=== PATIENT | female | born 1990 ===

== ENCOUNTER 2017-04-28 09:08 | Emergency (ER) | payer MEDICAID ==
[2017-04-28 09:19] VITALS: BMI 33.6
[2017-04-28 10:03] VITALS: TEMP 98.7
--- NOTE | 2017-04-28 10:11 | ED PDOC ---
Arrival/HPI - General Historian: Patient - General Chief Complaint: Chest Pain Time Seen by Provider: 04/28/17 09:20 - History of Present Illness Narrative History of Present Illness (Text): 04/28/17 10:05 A 27 year old female, whose past medical history includes anxiety that has untreated, whom is brought in by and presents to the emergency department complaining of chest pain, shortness of breath, and dizziness. Patient reports experiencing symptoms while on her way to work. Mentions currently in new high stress job that is anxiety invoking. Notes also experiencing diarrhea this morning. Patient denies any nausea, vomiting, LOC, or any other complaints. Also, patient mentions recently finishing a series of antibiotics for strep throat. PMD: Dr. Eliz Hicks ([place]) Past Medical History - Provider Review Nursing Documentation Reviewed: Yes - Psychiatric Hx Substance Use: No Family/Social History - Physician Review Nursing Documentation Reviewed: Yes Family/Social History: No Known Family HX Smoking Status: Never Smoked Hx Alcohol Use: No Hx Substance Use: No Allergies/Home Meds Allergies/Adverse Reactions: Allergies lecithin, soy Adverse Reaction (Severe, Verified 04/28/17 10:15) ANAPHYLAXIS Review of Systems - Physician Review All systems were reviewed & negative as marked: Yes - Review of Systems Constitutional: Normal Eyes: Normal ENT: Normal Respiratory: SOB Cardiovascular: Chest Pain Gastrointestinal: Diarrhea (this morning). absent: Nausea, Vomiting Genitourinary Female: Normal Musculoskeletal: Normal Skin: Normal Neurological: Dizziness Endocrine: Normal Hemo/Lymphatic: Normal Psychiatric: Normal Physical Exam Vital Signs Reviewed: Yes Temperature: Afebrile Blood Pressure: Normal Pulse: Regular Respiratory Rate: Normal Appearance: Positive for: Well-Appearing Pain Distress: None Mental Status: Positive for: Alert and Oriented X 3 - Systems Exam Head: Present: Atraumatic, Normocephalic Pupils: Present: PERRL Extroacular Muscles: Present: EOMI Conjunctiva: Present: Normal Mouth: Present: Moist Mucous Membranes Neck: Present: Normal Range of Motion Respiratory/Chest: Present: Clear to Auscultation, Good Air Exchange. No: Respiratory Distress, Accessory Muscle Use Cardiovascular: Present: Regular Rate and Rhythm, Normal S1, S2. No: Murmurs Abdomen: Present: Normal Bowel Sounds. No: Tenderness, Distention, Peritoneal Signs Back: Present: Normal Inspection Upper Extremity: Present: Normal Inspection. No: Cyanosis, Edema Lower Extremity: Present: Normal Inspection. No: Edema Neurological: Present: GCS=15, CN II-XII Intact, Speech Normal Skin: Present: Warm, Dry, Normal Color. No: Rashes Psychiatric: Present: Alert, Oriented x 3, Normal Insight, Normal Concentration Vital Signs Temp Pulse Resp BP Pulse Ox 04/28/17 12:44 98.7 F 87 14 131/75 100 04/28/17 09:20 98.7 F 96 H 12 133/76 97 Medical Decision Making - Lab Interpretations I have reviewed the lab results: Yes - EKG Interpretation Interpreted by ED Physician: Yes (NSR, Rate 82) ED Course and Treatment: 04/28/17 10:09 Impression: 27 year old female with chest pain, shortness of breath, and dizziness. Physical examination is benign. Plan: -- Chest X-ray -- Labs -- Rapid Flu Test -- Urinalysis -- Reassess and disposition Progress Notes: Pt expressed having anxiety for many years but has not received tx for it While in the ED, pt called into work to inform of ED visit, pt was told to not return to work as she was terminated; Pt required consoling at bedside Dispo home w instructions to see PMD for anxiety UTI treated w Macrobid x 7 days 04/29/17 00:42 ([place]) - Lab Interpretations Lab Results: 04/28/17 11:25 04/28/17 11:25 Lab Results 04/28/17 11:25: Sodium 141, Potassium 4.2, Chloride 105, Carbon Dioxide 27, Anion Gap 13, BUN 11, Creatinine 0.7, Est GFR ( Amer) > 60, Est GFR (Non- Af Amer) > 60, Random Glucose 103, Calcium 10.0, Total Bilirubin 0.3, AST 36, ALT 90 H, Alkaline Phosphatase 93, Total Protein 7.0, Albumin 4.3, Globulin 2.7 , Albumin/Globulin Ratio 1.6 04/28/17 11:25: WBC 7.9, RBC 4.99, Hgb 14.6, Hct 44.7, MCV 89.6, MCH 29.3, MCHC 32.7, RDW 13.3, Plt Count 224, MPV 10.7, Gran % 71.5 H, Lymph % (Auto) 22.0, [place] % (Auto) 5.3, Eos % (Auto) 0.9 L, Baso % (Auto) 0.3, Gran # 5.62, Lymph # ( Auto) 1.7, [place] # (Auto) 0.4, Eos # (Auto) 0.1, Baso # (Auto) 0.02 04/28/17 11:16: Influenza Typ A,B (EIA) Negative for flu a/b 04/28/17 11:16: Urine Color Yellow, Urine Appearance Clear, Urine pH 6.5, Ur Specific [place] 1.020, Urine Protein Negative, Urine Glucose (UA) Negative, Urine Ketones Negative, Urine Blood Negative, Urine Nitrate Negative, Urine Bilirubin Negative, Urine Urobilinogen 0.2, Ur Leukocyte Esterase Small H, Urine RBC 0 - 2, Urine WBC 2 - 5, Ur Epithelial Cells 4 - 5, Urine Bacteria Few , Urine HCG, Qual Negative - RAD Interpretation Narrative RAD Interpretations (Text): 04/29/17 00:46 CXR does not indicate pathology ([place]) Radiology Orders: 04/28/17 10:15 CXR (PA/LAT) [CHEST TWO VIEWS (PA/LAT)] [RAD] Stat - Medication Orders Current Medication Orders: Discontinued Medications Nitrofurantoin Macrocrystals (Macrobid) 100 mg PO Q12 NUZHAT Last Admin: 04/28/17 13:40 Dose: 100 mg - Scribe Statement The provider has reviewed the documentation as recorded by the Scribe - Scribe Statement Mayito Slaughter Provider Scribe Attestation: All medical record entries made by the Scribe were at my direction and personally dictated by me. I have reviewed the chart and agree that the record accurately reflects my personal performance of the history, physical exam, medical decision making, and the department course for this patient. I have also personally directed, reviewed, and agree with the discharge instructions and disposition. ([place]) Disposition/Present on Arrival - Present on Arrival Any Indicators Present on Arrival: Yes History of DVT/PE: No History of Uncontrolled Diabetes: No Urinary Catheter: No History of Decub. Ulcer: No History Surgical Site Infection Following: None - Disposition Have Diagnosis and Disposition been Completed?: Yes Disposition Time: 12:20 (04/28/17) Patient Plan: Discharge - Disposition Diagnosis: Anxiety Disposition: HOME/ ROUTINE Condition: GOOD Discharge Instructions (ExitCare): Nitrofurantoin Combination (By mouth), Urinary Tract Infection in Women (ED), Anxiety (ED) Additional Instructions: Dear Patient, We advise that you visit your doctor to talk about your options in dealing with anxiety. If you continue to feel chest pain, shortness pf breath and sweaty, you should come back to the emergency department All the best in your recovery Prescriptions: Nitrofurantoin Macrocrystals [Macrobid] 100 mg PO BID 7 Days #14 cap Referrals: Eliz Hicks MD [Primary Care Provider] - Follow up with primary Forms: [employer] ([place])
[2017-04-28 11:37] LABS: PH,URINE 6.5 (4.7-8.0); URINE BILIRUBIN NEGATIVE (NEGATIVE); URINE BLOOD NEGATIVE (NEGATIVE); URINE GLUCOSE (UA) NEGATIVE (NEGATIVE); URINE LEUKOCYTE ESTERASE SMALL Leu/uL (NEGATIVE); URINE NITRATE NEGATIVE (NEGATIVE); URINE PROTEIN NEGATIVE mg/dL (<30 mg/dL); URINE UROBILINOGEN 0.2 E.U./dL (<1 E.U./dL)
[2017-04-28 11:39] LABS: URINE APPEARANCE CLEAR (CLEAR); URINE COLOR YELLOW (YELLOW)
[2017-04-28 11:43] LABS: BASO # 0.02 K/mm3 (0.0-2.0); BASO % 0.3 % (0.0-3.0); EOS # 0.1 (0.0-0.7); EOS % 0.9 % (1.5-5.0); GRAN # 5.62 (1.4-6.5); GRAN % 71.5 % (50.0-68.0); HEMOGLOBIN 14.6 g/dL (12.0-16.0); LYMPH # 1.7 (1.2-3.4); MEAN CELL VOLUME 89.6 fl (80.0-105.0); MEAN CORPUSCULAR HEMOGLOBIN 29.3 pg (25.0-35.0); MEAN CORPUSCULAR HGB CONC 32.7 g/dl (31.0-37.0); MEAN PLATELET VOLUME 10.7 fl (7.0-11.0); MONO # 0.4 (0.1-0.6); MONO % 5.3 % (1.0-6.0); RBC 4.99 10^6/uL (3.5-6.1); RED CELL DISTRIBUTION WIDTH 13.3 % (11.5-14.5); WHITE BLOOD COUNT 7.9 10^3/ul (4.5-11.0)
[2017-04-28 11:46] LABS: ALB/GLOB RATIO 1.6 (1.1-1.8); ALBUMIN 4.3 g/dL (3.0-4.8); ALT/SGPT 90 U/L (7-56); AST/SGOT 36 U/L (14-36); BLOOD UREA NITROGEN 11 mg/dL (7-21); GFR AFRICAN-AMERICAN > 60; GFR NON-AFRICAN AMERICAN > 60
[2017-04-28 11:48] LABS: URINE BACTERIA FEW (NEG); URINE RBC 0 - 2 /hpf (0-2)
[2017-04-28 12:39] LABS: HCG,QUALITATIVE URINE NEGATIVE (NEGATIVE)
[2017-04-28 12:45] VITALS: BP 131/75; PULSE 87; RESP 14; O2SAT 100
--- NOTE | 2017-04-28 14:06 | RAD ---
HISTORY: COMPARISON: No prior. TECHNIQUE: Chest PA and lateral FINDINGS: LINES AND TUBES: None. LUNG AND PLEURA: The lungs are well inflated and clear. HEART AND MEDIASTINUM: The heart is not enlarged. The hilar and mediastinal contours are within normal limits. SKELETAL STRUCTURES: Status post open reduction internal fixation of right clavicular fracture with a metallic plate and screws. Otherwise, the E bony structures are within normal limits for the patient's age. VISUALIZED UPPER ABDOMEN: Normal. OTHER FINDINGS: None. IMPRESSION: No active pulmonary disease.
--- NOTE | 2017-04-28 18:12 | CARD ---
APPROVED REPORT EKG Measurement Heart [id number] <Conclusion> Normal sinus rhythm Possible Left atrial enlargement Borderline ECG
== END 2017-04-28 13:50 | disposition home or self-care (01) ==
LOC: ED 09:08
DX: F41.9 Anxiety disorder, unspecified (principal)

== ENCOUNTER 2017-06-10 22:37 | Emergency (ER) | payer MEDICAID ==
[2017-06-10 22:38] VITALS: BMI 33.6
== END 2017-06-11 01:01 | disposition left against medical advice (07) ==
LOC: ED 22:37
DX: Z02.89 Encounter for other administrative examinations (principal); R52 Pain, unspecified